=== PATIENT | female | born 1985 | race Asian ===

== ENCOUNTER 2018-10-15 10:17 | Emergency (ER) | payer OTHER ==
[2018-10-15 10:22] VITALS: BP 127/72
[2018-10-15] MEDS ORDERED: ACETAMINOPHEN 325 MG TABLET PO STA (10:42)
[2018-10-15] MEDS ORDERED: IBUPROFEN 600 MG TABLET PO STA (10:42)
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
== END 2018-10-15 11:49 | disposition home or self-care (01) ==
LOC: ED 10:17
DX: S51.812A Laceration without foreign body of left forearm, initial encounter (principal); W26.0XXA Contact with knife, initial encounter; W20.8XXA Other cause of strike by thrown, projected or falling object, initial encounter; Y99.8 Other external cause status
CPT/HCPCS: 12001; 99282; 99283; A9270

== ENCOUNTER 2019-06-05 01:20 | Inpatient (IN) | payer OTHER ==
[2019-06-05] MEDS ORDERED: LACTATED RINGERS 1,000 ML IV ONE (01:37)
[2019-06-05] MEDS ORDERED: ACETAMINOPHEN 500 MG TABLET PO PRN ×2 (01:45→08:05)
[2019-06-05] MEDS ORDERED: LACTATED RINGERS 1,000 ML IV SCH ×2 (02:00→05:00)
[2019-06-05 02:30] LABS: BILIRUBIN,URINE NEGATIVE (NEGATIVE); GLUCOSE, URINE (UA) NEGATIVE (NEGATIVE); KETONES,URINE (UA) TRACE mg/dL (NEGATIVE); LEUKOCYTE ESTERASE, URINE LARGE (NEGATIVE); NITRITE,URINE POSITIVE (NEGATIVE); OCCULT BLOOD,URINE MODERATE (NEGATIVE); PH,URINE 6.5 PH (5.0-7.5); PROTEIN,URINE TRACE mg/dL (NEGATIVE); UROBILINOGEN,URINE 0.2 (NORMAL) E.U./dL (NORMAL)
[2019-06-05 02:32] LABS: CLARITY,URINE CLOUDY (CLEAR)
[2019-06-05 02:34] LABS: BASOPHILS % (AUTO) 0.2 %; HGB - HEMOGLOBIN 12.2 g/dL (12.0-16.0); LYMPHOCYTES % (AUTO) 5.8 %; MEAN CORPUSCULAR HEMOGLOBIN 31.4 pg (27.0-31.0); MEAN CORPUSCULAR HGB CONC 33.7 g/dL (32.0-36.0); MEAN CORPUSCULAR VOLUME 93.1 fL (81.0-99.0); MEAN PLATELET VOLUME 8.8 fL (7.9-10.8); MONOCYTES % (AUTO) 10.5 %; NEUTROPHILS % (AUTO) 82.7 %; PLT - PLATELET COUNT 238 10^3/uL (130-450); RED BLOOD COUNT 3.89 10^6/uL (4.20-5.40); RED CELL DISTRIBUTION WIDTH 13.2 % (12.0-15.0); WHITE BLOOD COUNT 16.3 x10^3/uL (4.8-10.8)
[2019-06-05 02:56] LABS: BACTERIA,URINE Moderate /HPF (None Seen); SQUAMOUS EPITHELIAL CELL,UR RARE Squamous (<= Few)
[2019-06-05 02:58] LABS: ABNORMAL LYMPHS % (MANUAL) 0 %
[2019-06-05 03:08] LABS: ALBUMIN 3.2 g/dL (3.2-5.5); ALBUMIN/GLOBULIN RATIO 0.7 (1.0-2.2); BILIRUBIN,TOTAL 0.9 mg/dL (0.2-1.0); CALCIUM 9.5 mg/dL (8.5-10.3); CREATININE 0.7 mg/dL (0.4-1.0); TOTAL PROTEIN 7.5 g/dL (6.7-8.2)
[2019-06-05 03:17] LABS: BAND NEUTROPHILS % (MANUAL) 2 %; LYMPHOCYTES # (MANUAL) 1.1 10^3/uL (1.5-3.5); LYMPHOCYTES % (MANUAL) 7 %; MONOCYTES # (MANUAL) 1.5 10^3/uL (0.0-1.0)
[2019-06-05 03:18] LABS: DIFFERENTIAL COMMENT MANUAL DIFFERENTIAL; PLATELET ESTIMATE, MANUAL NORMAL (130-450,000) (NORMAL); PLATELET MORPHOLOGY NORMAL APPEARANCE (NORMAL); RBC MORPHOLOGY (MULTIPLE) NORMAL APPEARANCE (NORMAL)
--- NOTE | 2019-06-05 04:16 | HISTORY & PHYSICAL EXAMINATION ---
Admit History - Visit Reason Visit Reason: Other (Decreased movement and febrile temperature) - : 1 Parity: 0 Care: positive: Alexsander Risk/History: positive: None Complications This : positive: None Smoking Status: Never smoker - Mother's Labs Mother's Blood Type: positive: Unknown Mother's RH: positive: Unknown Rubella Status: positive: Unknown - Other Maternal History Other Maternal History: Patient is a 33 yo at 28w6d [facility] who presents to triage with decreased movement and febrile temperatures. She reports that her temperature at home was 103F and that she notes baby stopped moving when she started having chills and rigors. She has general myalgias and mid to lower back pain, no other symptoms. Has had her flu shot. No recent sick contacts but has taken a flight from [place] recently. Denies LOF/VB/CTX. Took a single tablet of tylenol, unknown dosing, about an hour prior to presentation. She received her care at [facility] and records are not available at this time. She reports an uncomplicated to date. Meds/Allgy - Home Medications Home Medications: Ambulatory Orders Medication Instructions Recorded Confirmed No Known Home Medications 10/15/18 10/15/18 - Allergies Allergies/Adverse Reactions: Allergies Allergy/AdvReac Type Severity Reaction Status Date / Time No Known Drug Allergies Allergy Verified 10/15/18 10:22 Review of Systems - Ears, Nose & Throat Ears, Nose & Throat: reports: Ear pain (Denies SOB, palpitations, PALMER, respiratory sx. Reports lower to mid back pain. No dysuria or hematuria.) - Cardiovascular Cariovascular: reports: Irregular heart rate, Palpitations, Chest pain, Edema - All Other Systems All Other Systems: reports: Reviewed and negative Physical - Abdominal Exam Vital Signs: Temp Pulse Resp BP Pulse Ox 98.2 F 109 H 20 106/53 L 95 06/05/19 03:06 06/05/19 03:06 06/05/19 03:06 06/05/19 03:06 06/05/19 03:06 Contraction Frequency (min/apart): none - Monitoring Heart Rate Baseline: 165 with periods in the 170s, 10 x10 accels, no decels Strip Review: positive: Category II - Vaginal Exam Membranes: positive: Membranes intact - Other Notes Labor Progress Note/Additional Text: Maternal HR in the 110s Uterus soft and non-tender CVA tenderness, right > left Plan for Labor - Plan For Labor Plan for Labor: Maternal Infection: Presentation most consistent with pyelonephritis Afebrile at presentation but reports temps to 103 at home -CBC and CMP -UA and culture -Additional dose of acetaminophen 500 mg x1 -LR bolus 1000 cc -CEFM UPDATE: -WBC 16 -UA positive for LE and nitrates with hematuria and pyuria. Creatinine wnl at 0.7 -Reducing IV fluids to 75 cc/hr to avoid fluid overload -Ceftriaxone 2g IV Q 24 hours until patient is afebrile > 24 hours - HR baseline decreased to 150 with 10x10 accels; not Cat I/AGA In-patient care until afebrile for 24 hours -Obtain records in the am
[2019-06-05] MEDS: cefTRIAXone 2 GM in SODIUM CHLORIDE 0.9% MINIBAG 100 ML IV SCH (04:30)
[2019-06-05] MEDS ORDERED: ACETAMINOPHEN 1,000 MG/100 ML 100 ML IV ONE ×2 (08:13→08:14)
[2019-06-05 08:40] LABS: BASOPHILS % (AUTO) 0.2 %; EOSINOPHILS # (AUTO) 0.1 10^3/uL (0.0-0.7); EOSINOPHILS % (AUTO) 0.9 %; LYMPHOCYTES # (AUTO) 0.9 10^3/uL (1.5-3.5); LYMPHOCYTES % (AUTO) 7.1 %; MEAN CORPUSCULAR HEMOGLOBIN 31.3 pg (27.0-31.0); MEAN CORPUSCULAR HGB CONC 34.2 g/dL (32.0-36.0); MEAN CORPUSCULAR VOLUME 91.7 fL (81.0-99.0); MEAN PLATELET VOLUME 8.5 fL (7.9-10.8); MONOCYTES # (AUTO) 0.7 10^3/uL (0.0-1.0); NEUTROPHILS # (AUTO) 11.3 10^3/uL (1.5-6.6); NEUTROPHILS % (AUTO) 85.9 %; PLT - PLATELET COUNT 197 10^3/uL (130-450); RED BLOOD COUNT 3.51 10^6/uL (4.20-5.40); RED CELL DISTRIBUTION WIDTH 13.2 % (12.0-15.0); WHITE BLOOD COUNT 13.2 x10^3/uL (4.8-10.8)
[2019-06-05 09:03] LABS: ALBUMIN 2.8 g/dL (3.2-5.5); ALBUMIN/GLOBULIN RATIO 0.7 (1.0-2.2); BILIRUBIN,TOTAL 1.1 mg/dL (0.2-1.0); CALCIUM 8.5 mg/dL (8.5-10.3); CREATININE 0.7 mg/dL (0.4-1.0); TOTAL PROTEIN 6.6 g/dL (6.7-8.2)
--- NOTE | 2019-06-05 09:37 | PROVIDER PROGRESS NOTE ---
Subjective - Prog Note Date Prog Note Date: 06/05/19 Prog Note Time: 09:35 - Subjective Subjective: After tylenol wore off, patient spiked to 39.5 with concomitant maternal tachycardia to 150s and tachycardia to 210's. Received a fluid bolus and 1000 mg IV acetaminophen and temp is 37.4. Materanl heart rate in 110s and heart rate in 160s, with good variability. No contractions. No uterine tenderness. Continues to have back pain. WBC dropped from 16 to 13 after dose of ceftriaxone. Creatinine has been stable. Endorses FM. No SOB or difficulty breathing Objective - Vital Signs/Intake & Output Vital Signs: Vital Signs x48h Temp Pulse Resp BP Pulse Ox 06/05/19 09:00 99.3 F 122 H 20 101/52 L 95 06/05/19 08:34 102.8 F H 140 H 24 95 06/05/19 07:50 103.1 F H 155 H 24 97 06/05/19 07:18 99.0 F 124 H 22 115/65 100 06/05/19 03:06 98.2 F 109 H 20 106/53 L 95 Intake & Output: Intake & Output 06/02/19 06/03/19 06/04/19 06/05/19 23:59 23:59 23:59 23:59 Intake Total 1100 Balance 1100 - Objective General Appearance: positive: No acute distress, Other (appears fatigued, packed in cool cloths) Respiratory: positive: No respiratory distress Cardiovascular: positive: Tachycardia Abdomen: positive: Other (gravid, soft and non-tender) Skin: positive: Color nml, Other (cool to touch at present) Neurologic/Psychiatric: positive: Oriented x3 - Lab Results Fish Bones: 06/05/19 08:35 06/05/19 08:35 Other Labs: Lab Results x24hrs 06/05/19 06/05/19 06/05/19 Range/Units 08:35 08:35 02:20 WBC 13.2 H (4.8-10.8) x10^3/uL RBC 3.51 L (4.20-5.40) 10^6/uL Hgb 11.0 L (12.0-16.0) g/dL Hct 32.2 L (37.0-47.0) % MCV 91.7 (81.0-99.0) fL MCH 31.3 H (27.0-31.0) pg MCHC 34.2 (32.0-36.0) g/dL RDW 13.2 (12.0-15.0) % Plt Count 197 (130-450) 10^3/uL MPV 8.5 (7.9-10.8) fL Neut # (Auto) 11.3 H Lymph # (Auto) 0.9 L [place] # (Auto) 0.7 Eos # (Auto) 0.1 Baso # (Auto) 0.0 Absolute Nucleated RBC 0.00 Total Counted Band Neuts % (Manual) (0 - 10) % Abnorm Lymph % (Manual) % Nucleated RBC % 0.0 Neutrophils # (Manual) (1.5-6.6) 10^3/uL Lymphocytes # (Manual) (1.5-3.5) 10^3/uL Monocytes # (Manual) (0.0-1.0) 10^3/uL Eosinophils # (Manual) (0-0.7) 10^3/uL Basophils # (Manual) (0-0.1) 10^3/uL Differential Comment WBC Morphology (NORMAL) Platelet Estimate (NORMAL) Platelet Morphology (NORMAL) RBC Morph Micro Appear (NORMAL) Sodium 133 L 134 L (135-145) mmol/L Potassium 3.6 3.7 (3.5-5.0) mmol/L Chloride 100 L 102 (101-111) mmol/L Carbon Dioxide 20 L 22 (21-32) mmol/L Anion Gap 13.0 10.0 (6-13) BUN 7 7 (6-20) mg/dL Creatinine 0.7 0.7 (0.4-1.0) mg/dL Estimated GFR (MDRD) 98 98 (>89) Glucose 114 H 121 H (70-100) mg/dL Calcium 8.5 9.5 (8.5-10.3) mg/dL Total Bilirubin 1.1 H 0.9 (0.2-1.0) mg/dL AST 26 23 (10-42) IU/L ALT 16 16 (10-60) IU/L Alkaline Phosphatase 76 78 (42-121) IU/L Total Protein 6.6 L 7.5 (6.7-8.2) g/dL Albumin 2.8 L 3.2 (3.2-5.5) g/dL Globulin 3.8 4.3 H (2.1-4.2) g/dL Albumin/Globulin Ratio 0.7 L 0.7 L (1.0-2.2) Urine Color Urine Clarity (CLEAR) Urine pH (5.0-7.5) PH Ur Specific [place] (1.002-1.030) Urine Protein (NEGATIVE) mg/dL Urine Glucose (UA) (NEGATIVE) mg/dL Urine Ketones (NEGATIVE) mg/dL Urine Occult Blood (NEGATIVE) Urine Nitrite (NEGATIVE) Urine Bilirubin (NEGATIVE) Urine Urobilinogen (NORMAL) E.U./dL Ur Leukocyte Esterase (NEGATIVE) Urine RBC (0-5) /HPF Urine WBC (0-5) /HPF Ur Squamous Epith Cells (<= Few) Urine Bacteria (None Seen) /HPF Ur Microscopic Review Urine Culture Comments 06/05/19 06/05/19 Range/Units 02:20 02:00 WBC 16.3 H (4.8-10.8) x10^3/uL RBC 3.89 L (4.20-5.40) 10^6/uL Hgb 12.2 (12.0-16.0) g/dL Hct 36.2 L (37.0-47.0) % MCV 93.1 (81.0-99.0) fL MCH 31.4 H (27.0-31.0) pg MCHC 33.7 (32.0-36.0) g/dL RDW 13.2 (12.0-15.0) % Plt Count 238 (130-450) 10^3/uL MPV 8.8 (7.9-10.8) fL Neut # (Auto) Not Reportable Lymph # (Auto) Not Reportable [place] # (Auto) Not Reportable Eos # (Auto) Not Reportable Baso # (Auto) Not Reportable Absolute Nucleated RBC Not Reportable Total Counted 100 Band Neuts % (Manual) 2 (0 - 10) % Abnorm Lymph % (Manual) 0 % Nucleated RBC % Not Reportable Neutrophils # (Manual) 13.7 H (1.5-6.6) 10^3/uL Lymphocytes # (Manual) 1.1 L (1.5-3.5) 10^3/uL Monocytes # (Manual) 1.5 H (0.0-1.0) 10^3/uL Eosinophils # (Manual) 0.0 (0-0.7) 10^3/uL Basophils # (Manual) 0.0 (0-0.1) 10^3/uL Differential Comment MANUAL DIFFERENTIAL WBC Morphology NORMAL APPEARANCE (NORMAL) Platelet Estimate NORMAL (130-450,000) (NORMAL) Platelet Morphology NORMAL APPEARANCE (NORMAL) RBC Morph Micro Appear NORMAL APPEARANCE (NORMAL) Sodium (135-145) mmol/L Potassium (3.5-5.0) mmol/L Chloride (101-111) mmol/L Carbon Dioxide (21-32) mmol/L Anion Gap (6-13) BUN (6-20) mg/dL Creatinine (0.4-1.0) mg/dL Estimated GFR (MDRD) (>89) Glucose (70-100) mg/dL Calcium (8.5-10.3) mg/dL Total Bilirubin (0.2-1.0) mg/dL AST (10-42) IU/L ALT (10-60) IU/L Alkaline Phosphatase (42-121) IU/L Total Protein (6.7-8.2) g/dL Albumin (3.2-5.5) g/dL Globulin (2.1-4.2) g/dL Albumin/Globulin Ratio (1.0-2.2) Urine Color YELLOW Urine Clarity CLOUDY (CLEAR) Urine pH 6.5 (5.0-7.5) PH Ur Specific [place] 1.015 (1.002-1.030) Urine Protein TRACE (NEGATIVE) mg/dL Urine Glucose (UA) NEGATIVE (NEGATIVE) mg/dL Urine Ketones TRACE (NEGATIVE) mg/dL Urine Occult Blood MODERATE H (NEGATIVE) Urine Nitrite POSITIVE H (NEGATIVE) Urine Bilirubin NEGATIVE (NEGATIVE) Urine Urobilinogen 0.2 (NORMAL) (NORMAL) E.U./dL Ur Leukocyte Esterase LARGE H (NEGATIVE) Urine RBC 6-10 H (0-5) /HPF Urine WBC >25 H (0-5) /HPF Ur Squamous Epith Cells RARE Squamous (<= Few) Urine Bacteria Moderate H (None Seen) /HPF Ur Microscopic Review INDICATED Urine Culture Comments INDICATED Assessment/Plan - Problem List (1) Pyelonephritis affecting Impression: Fever now controlled on ofirmev Has had one dose of ceftriaxone 2g IV Q24 H WBC dropped from 16 to 13 and creatinine is stable at 0.7 Fever/ and maternal tachycardia/CVA tenderness/US with pyuria and nitrites; pyelonephritis etiology of symptoms No uterine tenderness or contractions; low concern for chorioamnionitis -Scheduled Ofirmev A6 hours -To control fever within within of ofirmex effects, use cold presses and rubbing alcohol. Maternal fever drives both maternaal and heart rates Labs indicate clinical progress In-patient care until afebrile for 24 hours. Will need 14 days of oral abx after discharge and suppression for the remainder of tracing AGA other than elevated baseline. Baseline in 160s with moderate varaibility and absnece of decels -Ceftriaxone 2 g iV Q24 H -Ofirmex 100 mg IV Q6h -Remain cautious with fluids due to risk of pulmonary edema with pyelonephritis in In-patient care Qualifiers: Trimester: third trimester Qualified Code(s): O23.03 - Infections of kidney in , third trimester
[2019-06-05] MEDS: ACETAMINOPHEN 1,000 MG/100 ML 100 ML IV SCH ×2 (14:27→21:05)
[2019-06-06] MEDS: ACETAMINOPHEN 1,000 MG/100 ML 100 ML IV SCH ×4 (02:08→20:45)
[2019-06-06] MEDS: cefTRIAXone 2 GM in SODIUM CHLORIDE 0.9% MINIBAG 100 ML IV SCH (04:59)
[2019-06-06 10:01] LABS: BASOPHILS # (AUTO) 0.1 10^3/uL (0.0-0.1); BASOPHILS % (AUTO) 0.3 %; EOSINOPHILS # (AUTO) 0.1 10^3/uL (0.0-0.7); EOSINOPHILS % (AUTO) 0.8 %; HGB - HEMOGLOBIN 10.9 g/dL (12.0-16.0); LYMPHOCYTES % (AUTO) 6.4 %; MEAN CORPUSCULAR HEMOGLOBIN 31.5 pg (27.0-31.0); MEAN CORPUSCULAR HGB CONC 33.5 g/dL (32.0-36.0); MEAN CORPUSCULAR VOLUME 93.9 fL (81.0-99.0); MEAN PLATELET VOLUME 8.5 fL (7.9-10.8); MONOCYTES # (AUTO) 1.2 10^3/uL (0.0-1.0); MONOCYTES % (AUTO) 7.7 %; NEUTROPHILS # (AUTO) 13.2 10^3/uL (1.5-6.6); NEUTROPHILS % (AUTO) 83.9 %; PLT - PLATELET COUNT 200 10^3/uL (130-450); RED BLOOD COUNT 3.46 10^6/uL (4.20-5.40); RED CELL DISTRIBUTION WIDTH 13.4 % (12.0-15.0); WHITE BLOOD COUNT 15.7 x10^3/uL (4.8-10.8)
[2019-06-06 10:14] LABS: ALBUMIN 2.7 g/dL (3.2-5.5); ALBUMIN/GLOBULIN RATIO 0.7 (1.0-2.2); BILIRUBIN,TOTAL 0.7 mg/dL (0.2-1.0); CALCIUM 8.6 mg/dL (8.5-10.3); CREATININE 0.8 mg/dL (0.4-1.0); TOTAL PROTEIN 6.7 g/dL (6.7-8.2)
--- NOTE | 2019-06-06 13:02 | PROVIDER PROGRESS NOTE ---
Subjective - Prog Note Date Prog Note Date: 06/06/19 Prog Note Time: 10:00 - Subjective Pt reports feeling: Improved Subjective: Appears to be improving clinically. No longer tachycardic. Reports back pain has resolved. has been having elevated temperatures. Last clinically febrile temperature was at 21:10 on 06/05/2019. Endorses FM, denies CTX/LOF/VB. Endorse FM. Urine cultures positive for E.Coli but sensitivities are pending. heart rate 155. Current Medications - Current Medications Current Medications: ceftriaxone 2g IV Q24H Objective - Vital Signs/Intake & Output Vital Signs: Vital Signs x48h Temp Pulse Resp BP Pulse Ox 06/06/19 11:39 97.9 F 95 18 94/56 L 98 06/06/19 08:00 98.2 F 118 H 21 104/52 L 95 Intake & Output: Intake & Output 06/03/19 06/04/19 06/05/19 06/06/19 23:59 23:59 23:59 23:59 Intake Total 2060 100 Output Total 150 450 Balance 1910 -350 - Objective General Appearance: positive: No acute distress, Other (diaphoretic) Neck: positive: Nml inspection Cardiovascular: positive: Regular rate & rhythm Abdomen: positive: Non-tender, Other (gravid, S&NT) Back: positive: Other (CVA tenderness resolved) Skin: positive: Color nml, Diaphoresis Extremities: positive: Non-tender, No pedal edema Neurologic/Psychiatric: positive: Oriented x3 - Lab Results Fish Bones: 06/06/19 09:33 06/06/19 09:33 Other Labs: Lab Results x24hrs 06/06/19 06/06/19 Range/Units 09:33 09:33 WBC 15.7 H (4.8-10.8) x10^3/uL RBC 3.46 L (4.20-5.40) 10^6/uL Hgb 10.9 L (12.0-16.0) g/dL Hct 32.5 L (37.0-47.0) % MCV 93.9 (81.0-99.0) fL MCH 31.5 H (27.0-31.0) pg MCHC 33.5 (32.0-36.0) g/dL RDW 13.4 (12.0-15.0) % Plt Count 200 (130-450) 10^3/uL MPV 8.5 (7.9-10.8) fL Neut # (Auto) 13.2 H (1.5-6.6) 10^3/uL Lymph # (Auto) 1.0 L (1.5-3.5) 10^3/uL [place] # (Auto) 1.2 H (0.0-1.0) 10^3/uL Eos # (Auto) 0.1 (0.0-0.7) 10^3/uL Baso # (Auto) 0.1 (0.0-0.1) 10^3/uL Absolute Nucleated RBC 0.00 x10^3/uL Nucleated RBC % 0.0 /100WBC Sodium 130 L (135-145) mmol/L Potassium 3.2 L (3.5-5.0) mmol/L Chloride 99 L (101-111) mmol/L Carbon Dioxide 22 (21-32) mmol/L Anion Gap 9.0 (6-13) BUN 7 (6-20) mg/dL Creatinine 0.8 (0.4-1.0) mg/dL Estimated GFR (MDRD) 84 L (>89) Glucose 158 H (70-100) mg/dL Calcium 8.6 (8.5-10.3) mg/dL Total Bilirubin 0.7 (0.2-1.0) mg/dL AST 26 (10-42) IU/L ALT 18 (10-60) IU/L Alkaline Phosphatase 79 (42-121) IU/L Total Protein 6.7 (6.7-8.2) g/dL Albumin 2.7 L (3.2-5.5) g/dL Globulin 4.0 (2.1-4.2) g/dL Albumin/Globulin Ratio 0.7 L (1.0-2.2) Assessment/Plan - Problem List (1) Pyelonephritis affecting Impression: Clinical improvement from pyelonephritis Back pain resolved No current fever or tachycardia E.Coli on urine culture,; sensitivities pending Sendng CBC and CMP NST qshift; Cat I this am Cont in-patient care until afebrile x 24 hours Will dc to home on oral abx x14 days followed with daily suppression Qualifiers: Trimester: third trimester Qualified Code(s): O23.03 - Infections of kidney in , third trimester
[2019-06-06 15:47] LABS: BASOPHILS % (AUTO) 0.2 %; EOSINOPHILS % (AUTO) 0.1 %; LYMPHOCYTES # (AUTO) 1.1 10^3/uL (1.5-3.5); LYMPHOCYTES % (AUTO) 7.6 %; MEAN CORPUSCULAR HEMOGLOBIN 31.7 pg (27.0-31.0); MEAN CORPUSCULAR HGB CONC 33.7 g/dL (32.0-36.0); MEAN CORPUSCULAR VOLUME 93.9 fL (81.0-99.0); MEAN PLATELET VOLUME 8.7 fL (7.9-10.8); MONOCYTES # (AUTO) 1.3 10^3/uL (0.0-1.0); MONOCYTES % (AUTO) 9.1 %; NEUTROPHILS # (AUTO) 11.9 10^3/uL (1.5-6.6); PLT - PLATELET COUNT 200 10^3/uL (130-450); RED BLOOD COUNT 3.47 10^6/uL (4.20-5.40); RED CELL DISTRIBUTION WIDTH 13.4 % (12.0-15.0); WHITE BLOOD COUNT 14.5 x10^3/uL (4.8-10.8)
[2019-06-06] MEDS: PIPERACILLIN/TAZOBACTAM 3.375 GM in SODIUM CHLORIDE 0.9% MINIBAG 100 ML IV SCH (18:53)
--- NOTE | 2019-06-06 18:58 | Ultrasound Report ---
Reason: pyelonephritis in ; poor resposne to trt Procedure Date: 06/06/2019 Accession Number: [id number] / [id number] Procedure: US - Retroperitoneal CPT Code: Final Report FULL RESULT: EXAM: RENAL ULTRASOUND EXAM DATE: 06/06/2019 06:17 PM. CLINICAL HISTORY: Pyelonephritis in ; poor response to trt. 29 week . COMPARISON: None. TECHNIQUE: Real-time scanning was performed with static images obtained. FINDINGS: Right Kidney: 11.8 x 5.5 x 7.6 cm. Normal echotexture with no gross stones or contour-deforming masses. Mild hydronephrosis. Left Kidney: 12.9 x 6.8 x 6.8 cm. Normal echotexture with no gross stones, contour-deforming masses, or hydronephrosis. Bladder: Bilateral jets seen. The prevoid bladder volume was 306 cc. The postvoid bladder volume was 6 cc. Other: heart rate 135 bpm. IMPRESSION: 1. Mild right hydronephrosis, likely physiologic in . 2. Normal bilateral ureteral jets at the bladder. RADIA
[2019-06-07] MEDS: PIPERACILLIN/TAZOBACTAM 3.375 GM in SODIUM CHLORIDE 0.9% MINIBAG 100 ML IV SCH ×4 (01:27→19:04)
[2019-06-07] MEDS: ACETAMINOPHEN 1,000 MG/100 ML 100 ML IV SCH ×4 (02:53→23:09)
[2019-06-07] MEDS: cefTRIAXone 2 GM in SODIUM CHLORIDE 0.9% MINIBAG 100 ML IV SCH (04:55)
--- NOTE | 2019-06-07 12:52 | PROVIDER PROGRESS NOTE ---
Subjective - Prog Note Date Prog Note Date: 06/07/19 Prog Note Time: 12:50 - Subjective Pt reports feeling: Improved Subjective: Last clinically febrile temp was at 15:35 on 06/06/2019. No complaints. Denies back pain. No fefver/chills/myalgias. Endorses FM. Denies LOF/VB/CTX Objective - Vital Signs/Intake & Output Reviewed Vital Signs: Yes Vital Signs: Vital Signs x48h Temp Pulse Resp BP Pulse Ox 06/07/19 11:54 97.9 F 87 18 105/66 96 06/07/19 07:57 97.5 F L 67 17 100/55 L 100 06/07/19 06:58 97.7 F Intake & Output: Intake & Output 06/04/19 06/05/19 06/06/19 06/07/19 23:59 23:59 23:59 23:59 Intake Total 2060 1600 500 Output Total 150 850 800 Balance 1910 750 -300 - Objective General Appearance: positive: No acute distress Respiratory: positive: Chest non-tender, No respiratory distress Cardiovascular: positive: Regular rate & rhythm Abdomen: positive: Other (gravid, soft and non-tender) Back: positive: Nml inspection, Other (No CVA tenderness) Skin: positive: Color nml, Dry Extremities: positive: Non-tender, No pedal edema Neurologic/Psychiatric: positive: Oriented x3 - Lab Results Fish Bones: 06/06/19 15:39 06/06/19 09:33 Other Labs: Lab Results x24hrs 06/06/19 Range/Units 15:39 WBC 14.5 H (4.8-10.8) x10^3/uL RBC 3.47 L (4.20-5.40) 10^6/uL Hgb 11.0 L (12.0-16.0) g/dL Hct 32.6 L (37.0-47.0) % MCV 93.9 (81.0-99.0) fL MCH 31.7 H (27.0-31.0) pg MCHC 33.7 (32.0-36.0) g/dL RDW 13.4 (12.0-15.0) % Plt Count 200 (130-450) 10^3/uL MPV 8.7 (7.9-10.8) fL Neut # (Auto) 11.9 H (1.5-6.6) 10^3/uL Lymph # (Auto) 1.1 L (1.5-3.5) 10^3/uL [place] # (Auto) 1.3 H (0.0-1.0) 10^3/uL Eos # (Auto) 0.0 (0.0-0.7) 10^3/uL Baso # (Auto) 0.0 (0.0-0.1) 10^3/uL Absolute Nucleated RBC 0.00 x10^3/uL Nucleated RBC % 0.0 /100WBC Assessment/Plan - Problem List (1) Pyelonephritis affecting Impression: Has been afebrile almost 24 hours Sensitivities returned: sensitive to ceftriaxone Renal US wnl If remains afebrile through 24 hours, will discharge to home on cephalexin 500 mg po QID x 14 days with once a day suppressive dosing thereafter Cont in-patient care Anticipate DC home on 06/08/2019 Qualifiers: Trimester: third trimester Qualified Code(s): O23.03 - Infections of kidney in , third trimester
[2019-06-08] MEDS: PIPERACILLIN/TAZOBACTAM 3.375 GM in SODIUM CHLORIDE 0.9% MINIBAG 100 ML IV SCH ×2 (00:55→06:56)
[2019-06-08] MEDS: ACETAMINOPHEN 1,000 MG/100 ML 100 ML IV SCH (04:53)
[2019-06-08] MEDS: cefTRIAXone 2 GM in SODIUM CHLORIDE 0.9% MINIBAG 100 ML IV SCH (04:54)
[2019-06-08 08:02] VITALS: BP 104/58
--- NOTE | 2019-06-08 11:34 | DISCHARGE SUMMARY ---
REVISED: THIS REPORT WAS ORIGINALLY SIGNED ON 06/08/2019 @ 2243. REPORT MOVED TO CORRECT ACCOUNT ON06/10/2019. Physician: Shonna Salazar MD DATE OF ADMISSION: 06/05/2019 DATE OF DISCHARGE: 06/08/2019 ADMITTING DIAGNOSES: 1. Acute pyelonephritis. 2. Intrauterine at 28 weeks. DISCHARGE DIAGNOSES: 1. Intrauterine at 29 weeks. 2. Pyelonephritis undergoing treatment, greatly improved. OPERATIONS AND PROCEDURES: None. HOSPITAL COURSE: The patient was admitted with acute pyelonephritis and was found to have E. coli bacteria. She was treated with ceftriaxone and Zosyn. Her last fever of 100.4 or higher was on 06/06/2019 at 1525 hours. It took about 18 hours following this for her to become afebrile from mild temperature elevations. Her IV antibiotics were continued for 24 hours following this. By the time of discharge, patient was feeling well and was not feeling sick or feverish in any way. She was urinating without difficulty. She did not have any back pain. No problems with nausea or vomiting. No contractions, no vaginal bleeding, or leaking of water. She was feeling good movement. DISCHARGE EXAMINATION: The patient is afebrile with normal vital signs. She is alert and smiling, in no apparent distress. Abdomen: Soft, nontender, nondistended. It is gravid. No CVA tenderness bilaterally. No lower extremity edema, tenderness, erythema or cords. LABORATORY DATA: Creatinine was always normal. Maximum white blood cell count was 16; the most recent was 14. Hematocrit 36. Her urine cultures showed E. coli that was resistant to Bactrim, amoxicillin and ampicillin. It was sensitive to ceftriaxone. OUTSTANDING LABORATORIES: None. DISCHARGE DISPOSITION: Home. CONDITION: Good. FOLLOWUP: [facility] with her usual provider in three days. MEDICATIONS: 1. Continue vitamins. 2. Cephalexin 500 mg p.o. q. 6 hours for 14 days. After 14 days, the cephalexin will be continued at 500 mg daily until delivery. TD: 06/08/2019 10:42 MTDD
--- NOTE | 2019-06-16 15:55 | Discharge Plan ---
Discharge Plan Problem Reviewed?: Yes Disposition: Home, Self Care Condition: Good Diet: Regular Activity Restrictions: No Restrictions Shower Restrictions: No Driving Restrictions: No No Smoking: If you smoke, Please STOP! Call for help. Follow-up with: ARON ARANGO MD, PHD [Physician No Access] - (Regularly scheduled visit)
== END 2019-06-08 10:00 | disposition home or self-care (01) | DRG 833 ==
LOC: WFO 01:20 → FBP 01:22 → WFO 14:29 → FBP 14:31
PROVIDERS: ADMIT Obstetrics & Gynecology; ATTEND Obstetrics & Gynecology
DX: O23.03 Infections of kidney in pregnancy, third trimester (principal); B96.20 Unspecified Escherichia coli [E. coli] as the cause of diseases classified elsewhere; Z3A.29 29 weeks gestation of pregnancy
CPT/HCPCS: 36415; 76770; 80053; 81001; 85025; 87086; 87181; 96361; 96365; 99213; A9270; J0131; J7120; 81003

== ENCOUNTER 2019-07-29 08:00 | Outpatient (CLI) | payer OTHER ==
[2019-07-29 21:29] LABS: TRICHOMONAS VAGINALIS DNA NEGATIVE (NEGATIVE)
[2019-07-29 22:50] LABS: CANDIDA GROUP DNA NEGATIVE (NEGATIVE); CANDIDA KRUSEI DNA NEGATIVE (NEGATIVE); TRICHOMONAS VAGINALIS DNA NEGATIVE (NEGATIVE)
== END 2019-07-29 23:59 | disposition home or self-care (01) ==
LOC: LAB.R 08:00
PROVIDERS: ATTEND Nurse Practitioner Obstetrics & Gynecology
DX: Z36.85 Encounter for antenatal screening for Streptococcus B (principal); L29.8 Other pruritus
CPT/HCPCS: 87491; 87591; 87661; 87797; 87801

== ENCOUNTER 2019-08-19 10:03 | Outpatient (CLI) | payer OTHER ==
[2019-08-19 10:21] VITALS: BP 120/82
--- NOTE | 2019-08-19 11:10 | PROCEDURE REPORT ---
- HPI Diagnosis/Indication for NST: Decreased movement Current EDU 08/22/19 Gestation 39 Weeks and 4 Days 1 Para 0 Vital Signs Temperature 37.0 C 08/19/19 10:15 Heart Rate 100 08/19/19 10:15 Respiratory Rate 16 08/19/19 10:15 Blood Pressure 120/82 H 08/19/19 10:15 O2 Saturation 98 08/19/19 10:15 Temperature 37.0 C 08/19/19 10:15 Heart Rate 100 08/19/19 10:15 Respiratory Rate 16 08/19/19 10:15 Blood Pressure 120/82 H 08/19/19 10:15 O2 Saturation 98 08/19/19 10:15 - NST Procedure NST Procedure Start Date 08/19/19 Start Time 10:14 Stop Time 10:40 Vibroacoustic Stimulation Used No Patient States Movement Yes: Decreased FM - Results and Plan Plan: Jenae presents to [facility] following her routine office visit for NST secondary to decreased movement over the past several days. NST performed 08/19/2019. NST read 08/19/2019. NST reactive. Baseline 140s, moderate variability, + accels, no decels Pt released home with precautions and advised daily kick counting with instructions reviewed. Pt verbalized understanding and agrees to above plan. She denies further questions or concerns at this time.
== END 2019-08-19 10:45 | disposition home or self-care (01) ==
LOC: WFO 10:03 → FBP 10:06 → WFO 10:45
PROVIDERS: ATTEND Nurse Practitioner Obstetrics & Gynecology
DX: O36.8130 Decreased fetal movements, third trimester, not applicable or unspecified (principal); Z3A.39 39 weeks gestation of pregnancy
CPT/HCPCS: 59025

== ENCOUNTER 2019-08-27 17:40 | Inpatient (IN) | payer OTHER ==
[2019-08-27] MEDS ORDERED: ONDANSETRON 4 MG/2 ML VIAL IVP PRN (18:02)
[2019-08-27] MEDS ORDERED: SODIUM CHLORIDE FLUSH 0.9% 10 ML SYRINGE IVP PRN (18:02)
[2019-08-27] MEDS: miSOPROStoL 100 MCG TABLET BC SCH ×2 (19:00→23:55)
[2019-08-27 19:01] LABS: BASOPHILS % (AUTO) 0.2 %; EOSINOPHILS # (AUTO) 0.1 10^3/uL (0.0-0.7); EOSINOPHILS % (AUTO) 0.6 %; HGB - HEMOGLOBIN 13.3 g/dL (12.0-16.0); LYMPHOCYTES # (AUTO) 2.3 10^3/uL (1.5-3.5); LYMPHOCYTES % (AUTO) 23.3 %; MEAN CORPUSCULAR HEMOGLOBIN 31.6 pg (27.0-31.0); MEAN CORPUSCULAR HGB CONC 34.3 g/dL (32.0-36.0); MEAN CORPUSCULAR VOLUME 92.2 fL (81.0-99.0); MEAN PLATELET VOLUME 9.7 fL (7.9-10.8); MONOCYTES # (AUTO) 0.7 10^3/uL (0.0-1.0); MONOCYTES % (AUTO) 7.5 %; NEUTROPHILS # (AUTO) 6.6 10^3/uL (1.5-6.6); NEUTROPHILS % (AUTO) 67.8 %; PLT - PLATELET COUNT 263 10^3/uL (130-450); RED BLOOD COUNT 4.21 10^6/uL (4.20-5.40); RED CELL DISTRIBUTION WIDTH 13.5 % (12.0-15.0); WHITE BLOOD COUNT 9.7 x10^3/uL (4.8-10.8)
[2019-08-28] MEDS ORDERED: SODIUM CHLORIDE FLUSH 0.9% 10 ML SYRINGE IVP SCH (01:00)
--- NOTE | 2019-08-28 02:03 | HISTORY & PHYSICAL EXAMINATION ---
Admit History - Visit Reason Visit Reason: Other - : 1 Care: positive: [facility] Risk/History: positive: None Complications This : positive: None Smoking Status: Never smoker - Mother's Labs Mother's Blood Type: positive: A Mother's RH: positive: Positive GBS: positive: Group B Step Negative Rubella Status: positive: Immune - Other Maternal History Other Maternal History: Patient is a 33 yo at 40+5 wga here for IOL. has been uncomplicated. Initial U/S: 01/31/2019 @ 10.5wks c/w LMP dating A pos/Rubella immune Consented for IOL Will present to L&D on 08/28/19 at 6 pm for cervical ripening Genetic testing: CF neg; AFP Tetra - neg FAS: 04/04/2019 WNL. Posterior placenta, no previa. 3VC. GEORGE WNL. Cervix long and closed. Size c/w dating. Glucola 134 Influenza 03/27/2019 TDAP 06/04/2019 GBS & GC/CT NEG x 3 HSV: denies Breast pump Rx previously provided MOD: Anticipate Meds/Allgy - Home Medications Home Medications: Ambulatory Orders Medication Instructions Recorded Confirmed No Known Home Medications 10/15/18 10/15/18 - Allergies Allergies/Adverse Reactions: Allergies Allergy/AdvReac Type Severity Reaction Status Date / Time lactose AdvReac Cramps Verified 06/05/19 11:33 Review of Systems - Other Findings Other Findings: As per HPI, remaining systems are negative. Physical - Abdominal Exam Vital Signs: See Centricity VS wnl Contraction Frequency (min/apart): quier - Monitoring Strip Review: positive: Category I - Presentation Presentation: positive: Vertex - Vaginal Exam Membranes: positive: Membranes intact Plan for Labor - Plan For Labor Plan for Labor: 33 yo at 40+5 wga here for IOL IOL: -Cervical ripening with misoprostol 50 mcg BC Q4H for up to 6 doses -Consider Mann balloon placement -Pitocin when favorable -Consent obtained FWB: Vertex, Cat I, well grown, GBS neg -CEFM PAIN: -Nitrous contraindicated during pandemic -Epidural as desired -Fentanyl to max dose of 200 mcg total and not to be given after 7 cm. Observation during cervical ripening Transfer to in-patient care when active, ruptured, or when pitocin is started
[2019-08-28] MEDS: miSOPROStoL 100 MCG TABLET BC SCH (04:08)
[2019-08-28] MEDS ORDERED: OXYTOCIN/SODIUM CHLORIDE 500 ML IV ONE ×2 (08:23→21:45)
--- NOTE | 2019-08-28 08:42 | PROVIDER PROGRESS NOTE ---
Labor Progress Note - Uterine Monitoring Uterine Monitoring Mode: positive: External toco : 2-3 Contraction Intensity: positive: Moderate to strong Uterine Resting Tone: positive: Soft - Monitoring Monitor Mode: positive: External ultrasound Heart Rate Baseline: 140 Heart Rate Variability: positive: Moderate (6-25 bmp) Accelerations: positive: Absent Decelerations: positive: None Strip Review: positive: Category I - Vaginal Exam Dilation (in cm): 2-3 Effacement (%): 80 Station: -3 Cervical Position: Posterior - Labor Progress Note Labor Progress Note/Additional Text: Pt SROM 0400 thick mech Pt is very tight. not relaxing well. Pt is planing a delivery with out medication. pt should consider Epidural.
[2019-08-28] MEDS ORDERED: OXYTOCIN/SODIUM CHLORIDE 500 ML IV SCH ×2 (11:42→15:00)
[2019-08-28] MEDS: LACTATED RINGERS 1,000 ML IV SCH ×2 (11:46→17:55)
[2019-08-28] MEDS ORDERED: ROPIVACAINE 0.2% 200 MG/100 ML BAG EP ONE (12:05)
[2019-08-28] MEDS ORDERED: LIDOCAINE-MPF 1% 5 ML VIAL ONE ×2 (12:37→17:47)
[2019-08-28] MEDS ORDERED: LIDOCAINE-MPF 1% 30 ML VIAL ONE ×3 (12:37→21:45)
--- NOTE | 2019-08-28 13:20 | ANESTHESIA ---
Pre-Anesthesia VS, & Labs - Diagnosis gravid uterus - Procedure labor epidural Height 5 ft 4 in Weight (kg) 95.708 kg Body Mass Index 30.9 - Is Patient ?: Yes - Lab Results Current Lab Results: Laboratory Tests 08/27/19 18:40: WBC 9.7, RBC 4.21, Hgb 13.3, Hct 38.8, MCV 92.2, MCH 31.6 H, MCHC 34.3, RDW 13.5, Plt Count 263, MPV 9.7, Neut # (Auto) 6.6, Lymph # (Auto) 2.3, Wise # (Auto) 0.7, Eos # (Auto) 0.1, Baso # (Auto) 0.0, Absolute Nucleated RBC 0.00, Nucleated RBC % 0.0 Fish Bones: 08/27/19 18:40 Home Medications and Allergies Active Medications Lactated Ringer's (Lr) 1,000 mls @ 100 mls/hr IV .Q10H [facility] Last Admin: 08/28/19 11:46 Dose: 100 mls/hr Misoprostol (Cytotec) 50 mcg BC Q4H [facility] Last Admin: 08/28/19 04:08 Dose: 50 mcg Ondansetron HCl (Zofran Inj) 4 mg IVP Q4HR PRN PRN Reason: Nausea / Vomiting Sodium Chloride (Normal Saline Flush 0.9%) 10 ml IVP 0100,0900,1700 [facility] Sodium Chloride (Normal Saline Flush 0.9%) 10 ml IVP PRN PRN PRN Reason: NEEDED PER PROVIDER ORDERS No Known Home Medications 10/15/18 Allergies/Adverse Reactions: Allergies Allergy/AdvReac Type Severity Reaction Status Date / Time lactose AdvReac Cramps Verified 06/05/19 11:33 Anes History & Medical History - Anesthetic History Anesthesia Complications: reports: No previous complications Family history of Anesthesia Complications: Denies - Medical History Cardiovascular: reports: None Pulmonary: reports: None Neuro: reports: None Endocrine/Autoimmune: reports: None Smoking Status: Never smoker Other Past Medical History: obesity - Obstetrical History : 1 Parity: 0 Events: positive: None Complications: positive: None Plan for Delivery: vaginal delivery Exam Dental: WNL Mouth Opening: Greater than 4 Fingerbreadths Neck Mobility: Normal Mallampati classification: III Thyromental Distance: 4-6 cm Respiratory: Lungs clear Cardiovascular: Regular rate Mental/Cognitive Status: Alert/Oriented X3 Plan Anesthesia Type: Epidural Consent for Procedure(s) Verified and Reviewed: Yes Code Status: Attempt Resuscitation ASA classification: 2-Mild systemic disease Is this case an emergency?: No
[2019-08-28] MEDS ORDERED: ONDANSETRON 4 MG/2 ML VIAL IVP PRN (13:25)
[2019-08-28] MEDS ORDERED: NALOXONE 0.4 MG/ML VIAL IVP PRN (13:25)
[2019-08-28] MEDS ORDERED: ROPIVACAINE 0.2% 200 MG/100 ML BAG EP PRN (13:25)
[2019-08-28] MEDS ORDERED: ePHEDrine 50 MG/ML VIAL IVP PRN (13:25)
[2019-08-28] MEDS ORDERED: NALBUPHINE 10 MG/ML AMP IVP PRN (13:25)
[2019-08-28] MEDS ORDERED: diphenhydrAMINE INJ 50 MG/ML VIAL IVP PRN (13:25)
[2019-08-28] MEDS ORDERED: METOCLOPRAMIDE 10 MG/2 ML VIAL IVP PRN (13:25)
[2019-08-28] MEDS ORDERED: LACTATED RINGERS 500 ML IV ONE (13:25)
--- NOTE | 2019-08-28 22:43 | DELIVERY NOTE ---
Delivery Note - Delivery Comments (Free Text/Narrative) Delivery Comments (Free Text/Narrative): Labor: This 33year old At 40.5wks gestation by 10.5wk ultrasound, confirmed by LMP, presented at 08/27/2019 at 1800 for IOL. Cervix was unfavorable so ripening with misoprostol was initiated. FHR pattern was Cat I. Normal labor course. Pitocin augmentation. SROM at 0400 for thick mec. Epidural placed upon maternal request. Progressed to complete at 1910 and began spontaneous pushing efforts. : Normal of female infant on 08/28/2019 at 2106. Loose nuchal x1 reduced easily. The was placed on maternal abdomen, stimulated, dried, and placed skin to skin. Peds was present for delivery r/t Mec. Apgars 9 and 9 at one and five minutes respectively. The umbilical cord was allowed to stop pulsating at which time it was doubly clamped by CNM and cut by patient. Pitocin administered via IV for hemostasis. Fundal massage and gentle cord traction applied for active third stage management. Cord Blood was obtained. Placenta delivered spontaneously and intact at 2115. Three vessel cord. EBL after repair was 350mL. Fourth Stage: Uterine fundus firm without excessive bleeding. The perineum, vagina, and cervix were inspected and found to be intact. Dr Walker called in to assist with second degree repair which was repaired in usual sterile fashion with lidocaine and a 2-0 and 3-0 Vicryl. Vaginal and rectal examination following repair was done. Tissues well approximated. encouraged. Excellent maternal attachment behaviors noted. Both mother and baby are in stable condition.
[2019-08-28] MEDS ORDERED: HYDROCORTISONE 1% CREAM 28 GM TUBE PR PRN (23:05)
[2019-08-28] MEDS ORDERED: WITCH HAZEL/GLYCERIN 1 PAD TOP PRN (23:05)
[2019-08-28] MEDS: ACETAMINOPHEN 500 MG TABLET PO SCH (23:21)
[2019-08-28] MEDS: IBUPROFEN 600 MG TABLET PO SCH (23:22)
[2019-08-29] MEDS: IBUPROFEN 600 MG TABLET PO SCH ×3 (06:11→20:23)
[2019-08-29] MEDS: ACETAMINOPHEN 500 MG TABLET PO SCH ×2 (08:18→15:52)
[2019-08-29] MEDS: DOCUSATE SODIUM 100 MG CAPSULE PO SCH ×2 (08:30→20:23)
--- NOTE | 2019-08-29 19:12 | PROVIDER PROGRESS NOTE ---
Subjective - Prog Note Date Prog Note Date: 08/29/19 Prog Note Time: 19:10 - Subjective Subjective: Patient is doing well overall. She has some back pain that is limiting her activity. Improves with tylenol/ibuprofen. Lochia consistent with usual menstrual flow. Voiding. Tolerating po. BF going well. Objective - Vital Signs/Intake & Output Vital Signs: Vital Signs x48h Temp Pulse Resp BP Pulse Ox 08/29/19 16:00 98.6 F 81 16 112/73 97 08/29/19 12:51 97.9 F 76 16 113/72 98 Intake & Output: Intake & Output 08/26/19 08/27/19 08/28/19 08/29/19 23:59 23:59 23:59 23:59 Intake Total 615 1340 Output Total 1000 700 Balance -385 640 - Objective General Appearance: positive: No acute distress Respiratory: positive: Chest non-tender, No respiratory distress Cardiovascular: positive: Regular rate & rhythm Abdomen: positive: Other (S&NT/ND. Fundus firm below umbi) Skin: positive: Color nml Extremities: positive: Non-tender, No pedal edema Neurologic/Psychiatric: positive: Oriented x3 - Lab Results Fish Bones: 08/27/19 18:40 Assessment/Plan - Problem List (1) Vaginal delivery Impression: PPD#1 s/p Progressing towards meeting goals for discharge Ambulation encourages Anticipate DC home in am
[2019-08-30] MEDS: ACETAMINOPHEN 500 MG TABLET PO SCH ×3 (00:38→17:13)
[2019-08-30] MEDS: IBUPROFEN 600 MG TABLET PO SCH ×2 (06:41→12:48)
[2019-08-30] MEDS: DOCUSATE SODIUM 100 MG CAPSULE PO SCH (09:18)
--- NOTE | 2019-08-30 11:02 | PROVIDER PROGRESS NOTE ---
Subjective - Prog Note Date Prog Note Date: 08/30/19 Prog Note Time: 11:00 - Subjective Pt reports feeling: Improved (Pain 2/10. Breast feeding. Pt has friends to help with care.) Objective - Vital Signs/Intake & Output Vital Signs: Vital Signs x48h Temp Pulse Resp BP Pulse Ox 08/30/19 09:29 36.5 C 86 19 119/73 96 08/30/19 08:00 36.7 C 82 20 124/69 100 08/30/19 04:50 36.6 C 72 14 121/74 96 Intake & Output: Intake & Output 08/27/19 08/28/19 08/29/19 08/30/19 23:59 23:59 23:59 23:59 Intake Total 615 1340 Output Total 1000 700 Balance -385 640 - Objective General Appearance: positive: No acute distress, Alert Abdomen: positive: Non-tender, No organomegaly, Mass (u-1) Extremities: negative: Calf tenderness, Omayra's sign/cords - Lab Results Fish Bones: 08/27/19 18:40 Assessment/Plan - Problem List (1) Vaginal delivery Impression: Pt is dsoing well. breast feeding. reviewed contraception Discharge Medication. Motrin 800 mg Colace 100 mg Will call pt at 1 week adn RTC 6 weeks
--- NOTE | 2019-08-30 11:06 | Discharge Plan ---
Discharge Plan Problem Reviewed?: Yes Disposition: Home, Self Care Condition: Good Diet: Regular Activity Restrictions: Pelvic rest 6 weeks Shower Restrictions: No Driving Restrictions: No Weight Bearing: Full Weight No Smoking: If you smoke, Please STOP! Call for help. Follow-up with: COSTA RODRÍGUEZ [Primary Care Provider] -
[2019-08-30 16:16] VITALS: BP 113/81
--- NOTE | 2019-08-30 17:42 | Labor Flowsheet ---
Labor Flowsheet Datetime Report Generated by CPN: 08/30/2019 17:41 Datetime: 08/29/2019 01:10 VITAL SIGNS NBP Sys/Eden/Mean (mmHg): 125 : 68 : 80 Pulse: 91 Temperature (C): 37.0 Temperature Route: Oral PAIN Pain Scale: 2 Pain Presence: Intermittent Pain Type: Cramping Pain Location: Abdomen Datetime: 08/28/2019 22:30 Respirations: 18 Datetime: 08/28/2019 21:50 Medication Comments: Pitocin bag #2 hung at 100ml/hr Datetime: 08/28/2019 21:17 Stage 2 Comments: lidocaine for repair Datetime: 08/28/2019 21:10 Stage of : Recovery Datetime: 08/28/2019 21:00 LaborFlag: Labor Datetime: 08/28/2019 20:59 ASSESSMENT A Monitor Mode: External US FHR Baseline Rate : 135 Variability: Moderate 6-25 bpm Decelerations: Variable Category: Category II Pushing Progress: with Pushing Preparation for Delivery: Setup for Delivery Datetime: 08/28/2019 20:51 COMMUNICATION Communication: Provider at Bedside Provider Notified (Name): H. Vicente at bedside pushing with pt Datetime: 08/28/2019 20:50 UTERINE ACTIVITY Monitor Mode: External Frequency (min): 3 Quality: Strong Pattern: Normal: <= 5 Contractions in 10 Minutes Resting Tone (Palpate): Relaxed STAGE 2 Pushing: Coached on Pushing Pushing Position: Pushing with Contractions; Pushing Lithotomy Datetime: 08/28/2019 20:46 Vaginal Exam Comments: with pushes Datetime: 08/28/2019 20:31 FHR Baseline Changes: No Baseline Change Datetime: 08/28/2019 20:20 Pain Assessment Comments: pcea used Datetime: 08/28/2019 19:44 Patient Care Comments: 1000 ml long urine Datetime: 08/28/2019 19:40 Hygiene: Peripad Changed Datetime: 08/28/2019 19:31 I/O Interventions: Mann Discontinued Anesthesia Level Check: T10- Umbilicus Datetime: 08/28/2019 19:19 SpO2 (%): 99 Datetime: 08/28/2019 19:10 Contraction Comments: stron g urge to push with contractions Effacement (%): 100 Station: 0 Datetime: 08/28/2019 19:00 Duration (sec): 50-80 Accelerations: 15X15 PATIENT CARE Oxygen Method: Room Air Datetime: 08/28/2019 18:49 VAGINAL EXAM Dilatation (cm): 7.0 Exam by: H Boswell, CNM, [employer] Datetime: 08/28/2019 18:44 Communication Comments: Provider notified that patient feels like she needs to poop; provider will be in in a minute to see patient and check her Datetime: 08/28/2019 18:17 Pain Coping: Sleeping Datetime: 08/28/2019 17:54 Epidural Procedure Other: Redose Datetime: 08/28/2019 17:38 Patient Position/Activity: Right Lateral Datetime: 08/28/2019 17:00 Comments: Possible variable at 1657 Datetime: 08/28/2019 16:00 MEDICATIONS Pitocin (milliunits): Increased to @ 7 Datetime: 08/28/2019 15:43 Monitor Interventions for UA: [place] Adjusted Datetime: 08/28/2019 14:07 Vaginal Bleeding: Normal Show Cervix, Consistency: Soft Cervix, Position: Midposition Datetime: 08/28/2019 12:56 Epidural Procedure: Loading Dose Datetime: 08/28/2019 12:51 Anesthesia Comments: Negative test dose Datetime: 08/28/2019 12:23 PROCEDURE TIME OUT Procedure Verify: Correct Patient Identity; Correct Side and Site are Marked; Accurate Procedure Co nsent Form; Agreement on Procedure to be Done; Correct Patient Position ANESTHESIA Epidural Positioning: Sitting Datetime: 08/28/2019 09:27 Comfort Measures: Breathing/Relaxation Datetime: 08/28/2019 07:35 MATERNAL ASSESSMENT Level of Consciousness: Alert DTR's/Clonus: DTRs 2+; No Clonus Headache: Denies Breath Sounds, Left: Clear and Equal Breath Sounds, Right: Clear and Equal Nausea/Vomiting: Denies RUQ Epigastric Pain: Denies Datetime: 08/28/2019 06:48 Monitor Interventions for FHR: Ultrasound Adjusted Datetime: 08/28/2019 06:41 Amniotic Fluid Color: Heavy Meconium Amniotic Fluid Amount: Moderate Membrane Comments: saturated pad with thick meconium stained fluid Datetime: 08/28/2019 06:23 Pain Relief Measures: Comfort Measures Membrane Status: Ruptured Membranes Rupture Method: Spontaneous Datetime: 08/28/2019 04:11 Cervical Ripening Agents: Cytotec @ Procedures: Sterile Vag Exam Datetime: 08/28/2019 01:59 Notification Reason: Status Update Datetime: 08/27/2019 22:57 TEACHING Instructional Method: Verbal Pain Management: Comfort Measures Related: Activity and Rest Teaching Comments: discussed pelvic rocking for comfort Datetime: 08/27/2019 19:53 Plan of Care: Plan of Care Discussed Labor/Induction: Cervical Ripening
--- NOTE | 2019-09-10 10:57 | DISCHARGE SUMMARY ---
Physician: Rayshawn Bagley MD DATE OF ADMISSION: 08/28/2019 DATE OF DISCHARGE: 08/30/2019 ADMITTING DIAGNOSES: 1. A 33-year-old G1, P1, 40 weeks 5 days. 2. Presents for induction of labor. DISCHARGE DIAGNOSES: 1. A 33-year-old G1, P0, 40 weeks 5 days. 2. Presents for induction of labor. DISCHARGE DIAGNOSES: 1. A 33-year-old G1, P0, 40 weeks 5 days. 2. Presents for induction of labor. 3. Delivery of a female infant, Apgars 9 and 9, repair of second-degree laceration. PROCEDURES: 1. Misoprostol cervical ripening. 2. Pitocin induction. 3. Epidural. 4. Spontaneous vaginal delivery. 5. Repair of second-degree laceration. PRESENTING HISTORY: The patient is a 33-year-old G1, P0 female whose EDC was 08/17/2019. This was confirmed with ultrasound at 10 weeks and 5 days as well as LMP. She had started her OB care at 10 weeks and 5 days. She was noted to be rubella immune, A positive, she was GBS negative, her STI checking was all negative. On admission, her cervix was unfavorable, and for this reason she was planned to have misoprostol, possible Mann placement as well as Pitocin when considered favorable. LABORATORIES: CBC on admission showed a white count of 9.7, hemoglobin 13.3, hematocrit 38.8, platelets were 263. HOSPITAL COURSE: She developed a favorable cervix, at which time she had Pitocin administered. Her plan initially was to deliver without an epidural, but because of patient analgesia she received one. She progressed to complete at 1910 and at 2115, delivered a live female with nuchal cord x1. The Apgars were 9 and 9. Her course was unremarkable. She had repair of a second-degree laceration. She was sent home on 08/30/2019. Her pain was well controlled. DISCHARGE MEDICATIONS: 1. Motrin 800 mg. 2. Colace 100 mg. We discussed at that time. We reviewed contraception. She was told to return to clinic in 1 and 6 weeks. TD: 09/10/2019 10:45 [facility]
== END 2019-08-30 17:27 | disposition home or self-care (01) | DRG 807 ==
LOC: WFO 17:40 → FBP 17:44 → WFO 18:01 → FBP 18:02 → OBSVTOIN 08-28 08:46 → FBP 08-29 06:30
PROVIDERS: ADMIT Obstetrics & Gynecology; ATTEND Obstetrics & Gynecology
PROC: 10E0XZZ Delivery of Products of Conception, External Approach (ICD-10-PCS; principal; 2019-08-28)
PROC: 0KQM0ZZ Repair Perineum Muscle, Open Approach (ICD-10-PCS; 2019-08-28)
DX: O48.0 Post-term pregnancy (principal); Z37.0 Single live birth; O77.0 Labor and delivery complicated by meconium in amniotic fluid; O70.1 Second degree perineal laceration during delivery; O69.81X0 Labor and delivery complicated by cord around neck, without compression, not applicable or unspecified; Z3A.40 40 weeks gestation of pregnancy
CPT/HCPCS: 85025; A9270; G0378; J7120